=== PATIENT | male | born 1975 | race Caucasian/White ===

== ENCOUNTER 2017-11-10 09:31 | Emergency (ER) | payer OTHER, SELFPAY ==
[2017-11-10 09:45] VITALS: BP 118/69; PULSE 82; RESP 20; TEMP 36.4; O2SAT 98; BMI 31.7
--- NOTE | 2017-11-10 09:45 | HMH.EDUTC ---
[facility] [place] Clinical Impression: URI (upper respiratory infection) Qualifiers: URI type: unspecified URI Qualified Code(s): J06.9 - Acute upper respiratory infection, unspecified Disposition: Home, Self-Care Condition on Discharge: Good Instructions: Cough, DI for Nasal Congestion Additional Instructions: * Monitor Temp. Tylenol and/or Ibuprofen as needed. ER if fever is no less than 101 despite alternating Tylenol and Ibuprofen * Encourage fluids, water, Gatorade, powerade, pedialyte if /toddler/or child * Warm salt water gargles for throat irritation *Warm fluids *Sore throat lozenges *Sleep elevated *humidifier or vaporizer Lots of rest Increase fluids, water, Gatorade, powerade *Flonase 2 sprays each nostril daily but may take 2-3 days to notice improvement with it *Bromfed may cause drowsiness. Know how it effect you or your child. Before driving, caring for small children or sending your child to school *Your throat swab was sent to lab for culture. Those results area typically sent to your primary care physician. Be sure to follow up in 2-3 days if no improvement so they can review those results and treat if necessary If you dont have primary care I recommend you get one, but in the mean time you will have to return to a walk in clinic Follow up IMMEDIATELY for new or worsening of symptoms OR no noticeable improvement over the next 48-72 hours. 911 immediately for any life threatening symptoms such as chest pain or difficulty breathing Prescriptions: Azithromycin [Z-Cristobal 250mg Tab] 250 mg PO UD DOSE PK #6 tab Brompheniramine/Pseudoephed/Dm [Bromfed DM Cough Syrup 5mL] 10 ml PO Q4H PRN #200 syrup PRN Reason: Cough Fluticasone Propionate [Flonase 50mcg nasal spray 16gm] 2 spr NS DAILY #1 bottle predniSONE [Prednisone 20mg Tab] 20 mg PO BID #10 tab Forms: Work/School Release Time of Disposition: 09:58 Medical Decision Making - Medical Records Medical records reviewed: Yes: I reviewed the patient's medical records. - Candido Inquiry Pt receiving controlled substance: No Candido was queried for this patient: No [facility] [place] - General Stated complaint: Flu like symptoms - History of Present Illness Provider Complaint: Patient states that he has been having flu like symptoms for the last couple of days State that he started feeling bad on Tuesday and felt like he may have been getting a UTI or bronchitis State that last night he felt like he may have started running a fever last night State that he was having chills and feeling cold then broke out into a sweat. States that today he is achy all over and over all just does not feel well and having issues with his sinuses again - Related Data Previous Rx's Medication Instructions Recorded Azithromycin [Z-Cristobal 250mg Tab] 250 mg PO UD DOSE PK #6 tab 11/10/17 Brompheniramine/Pseudoephed/Dm 10 ml PO Q4H PRN #200 syrup 11/10/17 [Bromfed DM Cough Syrup 5mL] Fluticasone Propionate [Flonase 2 spr NS DAILY #1 bottle 11/10/17 50mcg nasal spray 16gm] predniSONE [Prednisone 20mg 20 mg PO BID #10 tab 11/10/17 Tab] Allergies Allergy/AdvReac Type Severity Reaction Status Date / Time No Known Allergies Allergy Verified 11/10/17 09:47 [facility] History I have reviewed the patient's past medical history: Yes Other Surgeries: Yes: No Previous Surgery - *Social History Tobacco Type: cigarettes Substance Use Type: denies use ROS Obtained: Yes All systems reviewed & no additional complaints - Constitutional Constitutional: Reports fever(s) - ENT Ears, Nose, Mouth, and Throat: Reports sinus pressure, Reports sore throat - Cardiovascular Cardiovascular: Denies chest pain at rest - Respiratory Respiratory: Yes cough, Yes non-productive cough, No coughing up blood Physical Exam - General General appearance: alert, in no apparent distress - Expanded ENT Exam Nose exam: Present: sinus tenderness Comment: Throat red, irritated drainage noted
--- NOTE | 2017-11-10 09:51 | ED_ITS ---
[facility] [place] Disposition Clinical Impression: URI (upper respiratory infection) Qualifiers: URI type: unspecified URI Qualified Code(s): J06.9 - Acute upper respiratory infection, unspecified Disposition: Home, Self-Care Condition on Discharge: Good Instructions: Cough, DI for Nasal Congestion Additional Instructions: * Monitor Temp. Tylenol and/or Ibuprofen as needed. ER if fever is no less than 101 despite alternating Tylenol and Ibuprofen * Encourage fluids, water, Gatorade, powerade, pedialyte if /toddler/or child * Warm salt water gargles for throat irritation *Warm fluids *Sore throat lozenges *Sleep elevated *humidifier or vaporizer Lots of rest Increase fluids, water, Gatorade, powerade *Flonase 2 sprays each nostril daily but may take 2-3 days to notice improvement with it *Bromfed may cause drowsiness. Know how it effect you or your child. Before driving, caring for small children or sending your child to school *Your throat swab was sent to lab for culture. Those results area typically sent to your primary care physician. Be sure to follow up in 2-3 days if no improvement so they can review those results and treat if necessary If you don? t have primary care I recommend you get one, but in the mean time you will have to return to a walk in clinic Follow up IMMEDIATELY for new or worsening of symptoms OR no noticeable improvement over the next 48-72 hours. 911 immediately for any life threatening symptoms such as chest pain or difficulty breathing Prescriptions: Azithromycin [Z-Cristobal 250mg Tab] 250 mg PO UD DOSE PK #6 tab Brompheniramine/Pseudoephed/Dm [Bromfed DM Cough Syrup 5mL] 10 ml PO Q4H PRN # 200 syrup PRN Reason: Cough Fluticasone Propionate [Flonase 50mcg nasal spray 16gm] 2 spr NS DAILY #1 bottle predniSONE [Prednisone 20mg Tab] 20 mg PO BID #10 tab Forms: Work/School Release Time of Disposition: 09:58 Medical Decision Making - Medical Records Medical records reviewed: Yes: I reviewed the patient's medical records. - Candido Inquiry Pt receiving controlled substance: No Candido was queried for this patient: No [facility] [place] HPI - General Stated complaint: Flu like symptoms - History of Present Illness Provider Complaint: Patient states that he has been having flu like symptoms for the last couple of days State that he started feeling bad on Tuesday and felt like he may have been getting a UTI or bronchitis State that last night he felt like he may have started running a fever last night State that he was having chills and feeling cold then broke out into a sweat. States that today he is achy all over and over all just does not feel well and having issues with his sinuses again - Related Data Previous Rx's Medication Instructions Recorded Azithromycin [Z-Cristobal 250mg Tab] 250 mg PO UD DOSE PK #6 tab 11/10/17 Brompheniramine/Pseudoephed/Dm 10 ml PO Q4H PRN #200 syrup 11/10/17 [Bromfed DM Cough Syrup 5mL] Fluticasone Propionate [Flonase 2 spr NS DAILY #1 bottle 11/10/17 50mcg nasal spray 16gm] predniSONE [Prednisone 20mg 20 mg PO BID #10 tab 11/10/17 Tab] Allergies Allergy/AdvReac Type Severity Reaction Status Date / Time No Known Allergies Allergy Verified 11/10/17 09:47 [facility] History I have reviewed the patient's past medical history: Yes Other Surgeries: Yes: No Previous Surgery - *Social History Tobacco Type: cigarettes Substance Use Type: denies use ROS Obtained: Yes All systems reviewed & no additional complaints -
[2017-11-10 09:55] LABS: UTC Influenza A Antigen Negative (Negative); UTC Influenza B Antigen Negative (Negative)
== END 2017-11-10 10:05 | disposition home or self-care (01) ==
PROVIDERS: Emergency Provider Nurse Practitioner
DX: J06.9 Acute upper respiratory infection, unspecified (principal)
CPT/HCPCS: 87804; 99202

== ENCOUNTER 2021-06-24 10:19 | Emergency (ER) | payer OTHER, SELFPAY ==
[2021-06-24 11:29] VITALS: BP 128/77; PULSE 65; RESP 14; TEMP 36.4; O2SAT 98; BMI 31.0
[2021-06-24 11:36] LABS: Apearance,Urine Clear (Clear); Blood, Urine Trace (Negative); Color,Urine Yellow (Yellow); Glucose,Urine (UA) Negative (Negative); Ketones,Urine Negative (Negative); PH,Urine 5.5 (5.0-8.5); Protein,Urine Negative (Negative); Specific Gravity, Urine 1.025 (1.005-1.030)
[2021-06-24 11:37] LABS: Bilirubin,Urine Negative (Negative); UTC Leukocyte Esterase,Urine Negative (Negative); UTC Nitrate,Urine Negative (Negative); Urobilinogen,Urine 0.2 EU/dl (0.2)
--- NOTE | 2021-06-24 11:50 | HMH.EDUTC ---
[facility] [place] Clinical Impression: Flank pain Low back pain Qualifiers: Chronicity: unspecified Back pain laterality: right Sciatica presence: without sciatica Qualified Code(s): M54.5 - Low back pain Disposition: Home, Self-Care Condition on Discharge: Good Instructions: DI for Low Back Pain, DI for Chronic Pain -- Adult, Ketorolac, DI for Flank Pain Additional Instructions: Take medication as prescribed Make sure that you are drinking plenty of fluids FOllow up with your Family Doctor if no improvement or any worsening of symptoms Follow up with Dr John in Urology, call office to make appointment Straight to ER if any life threatening symptoms, unable to urinate, fever, chills, etc Return if needed' Do not start oral pain medication for the next 10 hours start at 10pm tonight if needed Prescriptions: Ketorolac Tromethamine [Toradol 10mg tablet] 10 mg PO Q6HP PRN #12 tab MDD 40mg/day PRN Reason: Moderate Pain Transmission Status: Received by [id number] Referrals: ProviderShani MD [Primary Care Provider] - Howard John MD [Staff Physician] - (Call office for appointment) Forms: Work/School Release Time of Disposition: 12:08 Medical Decision Making - Candido Inquiry Pt receiving controlled substance: No Candido was queried for this patient: No Vital Signs: 06/24/21 11:29 06/24/21 12:14 Temperature 97.5 F L 97.9 F Temperature Source Oral Pulse Rate 69 Pulse Rate [Left] 65 Respiratory Rate 14 16 Blood Pressure 121/83 Blood Pressure [Right Arm] 128/77 Blood Pressure Mean [Right Arm] 94 02 Sat by Pulse Oximetry 98 - Lab Data Lab results reviewed: Yes: I reviewed the patient's lab results. Lab Results 06/24/21 11:35: Urine Color Yellow, Urine Appearance Clear, Urine pH 5.5, Ur Specific [place] 1.025, Urine Protein Negative, Urine Glucose (UA) Negative, Urine Ketones Negative, Urine Blood Trace, Urine Nitrate Negative, Urine Bilirubin Negative, Urine Urobilinogen 0.2, Ur Leukocyte Esterase Negative Orders (Tests/Meds): ED MEDICATIONS Discontinued Medications Generic Name Dose Route Start Last Admin Trade Name Freq PRN Reason Stop Dose Admin Ketorolac Tromethamine 60 mg 06/24/21 11:51 06/24/21 11:55 Ketorolac 60mg/2ml Vial IM 06/24/21 11:52 60 mg ONCE ONE Administration ORDERS Category Date Time Status Urine Culture Stat Micro 06/24/21 11:38 Received Medical Decision Narrative: UA results evaluated and trace blood noted Discussed with patient that in the [facility] cannot do CT with stone protocol and recommended that patient be transferred to the ED for further work up and evaluation and patient declined transfer state that he has been able to pass stones in the past and pain is not as bad right now that if pain worsens or he is not able to pass it he will return to the ED patient educated on risks and still declined transfer Patient reports that he has taken Toradol in the past without complications or reactions [facility] [place] HPI - General Stated complaint: lower back pain, possible kidney stone Time Seen by Provider: 06/24/21 11:51 Mode of Arrival: Ambulatory Source of Information: Patient Limitations: No Limitations Description of Symptoms (Recalled from Triage Doc. by RN): pt c/o lower back pain x3 days. today the pain has radiated to his R flank. pain is intermittant at an 9/10. pt has a hx of kidney stones. HEENT Symptoms (Recalled from RN notes): No Resp Symptoms (Recalled from RN notes): No Skin Symptoms (Recalled from RN notes): No MS Symptoms (Recalled from RN notes): Yes (lower back pain) Functional Status (Recalled from RN notes): na - History of Present Illness Provider Complaint: Patient state that he has a history of kidney stones and low back pain State that he started having achy like pain on and off in the right lower back that has since moved over to lower back and flank area States that kind of feels like it did when he had a ki
[2021-06-24 12:14] VITALS: BP 121/83; PULSE 69; RESP 16; TEMP 36.6
== END 2021-06-24 12:27 | disposition home or self-care (01) ==
PROVIDERS: Emergency Provider Nurse Practitioner
DX: M54.5 Low back pain (principal); R10.11 Right upper quadrant pain; Z87.442 Personal history of urinary calculi; F17.210 Nicotine dependence, cigarettes, uncomplicated
CPT/HCPCS: 81003; 87086; 96372; 99202; G0463

== ENCOUNTER 2021-06-26 02:37 | Emergency (ER) | payer OTHER, SELFPAY ==
[2021-06-26 02:39] VITALS: BP 150/81; PULSE 77; RESP 16; TEMP 36.6; O2SAT 98; BMI 31.0
[2021-06-26 02:43] VITALS: BMI 29.5
--- NOTE | 2021-06-26 02:43 | CT_ITS ---
PROCEDURE INFORMATION: Exam: CT Abdomen And Pelvis Without Contrast Exam date and time: 06/26/2021 2:43 AM Age: 46 years old Clinical indication: Abdominal pain; Right; Patient HX: RT flank pain, HX of kidney stones; Additional info: Rule out kidney stone TECHNIQUE: Imaging protocol: Computed tomography of the abdomen and pelvis without contrast. Radiation optimization: All CT scans at this facility use at least one of these dose optimization techniques: automated exposure control; mA and/or kV adjustment per patient size (includes targeted exams where dose is matched to clinical indication); or iterative reconstruction. COMPARISON: CR XR LUMBAR SPINE MIN 4V 10/22/2019 12:25 PM FINDINGS: Lungs: There are benign calcified granulomas noted within the right middle lobe as well as within the right perihilar region. No evidence of basilar infiltrates. No evidence of pleural effusion or pneumothorax. Liver: The liver is normal in size and attenuation. No intrahapatic biliary dilitation. Gallbladder and bile ducts: Normal. No calcified stones. No ductal dilation. Gallbladder wall thickness is normal. Pancreas: Normal. No ductal dilation. Spleen: There are benign splenic calcified granulomas. The spleen is normal in size. Adrenal glands: Normal. No mass. Adrenal glands: Normal. No mass. Kidneys and ureters: There is a 6 mm nonobstructing nephroliths identified within the inferior pole of the left kidney. There is no evidence of hydronephrosis or hydroureter bilaterally. Stomach and bowel: Unremarkable. No obstruction. No mucosal thickening. Small bowel mesentery is normal. Appendix: Unremarkable. Intraperitoneal space: Unremarkable. No free air. No significant fluid collection. Vasculature: Unremarkable. No abdominal aortic aneurysm. Lymph nodes: Unremarkable. No enlarged lymph nodes. Urinary bladder: Unremarkable as visualized. Reproductive: Unremarkable as visualized. Bones/joints: Unremarkable. No acute fracture. Soft tissues: Unremarkable. IMPRESSION: 1. There is a 6 mm nonobstructing nephroliths arising from the inferior pole of the left kidney. No evidence of hydronephrosis or hydroureter. 2. Evidence of old healed granulomatous disease present within the right middle lobe, the right perihilar region, and within the spleen.
[2021-06-26 03:07] LABS: Alanine Aminotransferase 38 U/L (12-78); Albumin Level 4.4 g/dl (3.5-5.0); Albumin/Globulin Ratio 1.5 (1.1-1.8); Alkaline Phosphatase 65 U/L (38-126); Amylase 81 U/L (30-110); Anion Gap 12.5 mEq/L (5-15); Aspartate Amino Transferase 32 U/L (17-59); Basophils # 0.1 K/mm3 (0-0.2); Basophils % 0.9 % (0.1-2.0); Bilirubin,Total 0.3 mg/dl (0.2-1.3); Blood Urea Nitrogen 11 mg/dl (9-20); Calcium 9.1 mg/dl (8.4-10.2); Carbon Dioxide 26 mmol/L (22.0-30.0); Chloride 107 mmol/L (98-107); Creatinine Clearance Estimated 121 mL/min (50-200); Eosinophils # 0.2 K/mm3 (0.0-0.4); Eosinophils % 2.2 % (0.1-12.0); Estimated Glomerular Filt Rate 81 ml/min (>60); GFR (African American) 98 ML/MIN (>60); Globulin 2.9 g/dL (1.3-3.2); Glucose 99 mg/dl (74-100); Hematocrit 49.1 % (42.0-52.0); Hemoglobin 16.5 g/dL (14.1-18.0); Lipase 92 U/L (23-300); Lymphocytes % 40.6 % (10-50); Mean Corpuscular HGB Conc 33.5 g/dL (31.8-35.4); Mean Corpuscular Hemoglobin 31.5 pg (27.0-31.2); Mean Corpuscular Volume 94.1 fl (80-94); Mean Platelet Volume 7.5 fl (7.4-10.4); Monocytes # 0.4 K/mm3 (0.1-1.0); Monocytes % 4.5 % (1.7-9.3); Neutrophils # 5.1 K/mm3 (1.8-7.8); Neutrophils % 51.9 % (37.0-80.0); Platelet Count 322 K/mm3 (142-424); Potassium 4.5 mmoL/L (3.5-5.1); Red Blood Count 5.22 M/mm3 (4.60-6.20); Red Cell Distribution Width 13.8 % (11.5-17.5); Sodium 141 mmol/L (136-145); Total Protein,Serum 7.3 g/dl (6.3-8.2); White Blood Count 9.8 K/mm3 (4.8-10.8)
[2021-06-26 03:13] LABS: C-Reactive Protein 2.8 mg/L (0-4)
[2021-06-26 03:27] LABS: Procalcitonin 0.043 ng/mL (0.0-2.0)
[2021-06-26 04:00] VITALS: BP 117/76; PULSE 61; RESP 14; O2SAT 97
[2021-06-26 04:03] LABS: Erythrocyte Sedimentation Rate 18 mm/hr (0-15)
[2021-06-26 04:30] VITALS: BP 115/66; PULSE 56; O2SAT 97
--- NOTE | 2021-06-26 04:33 | HMH.EDGENADL ---
ED Disposition Clinical Impression: Flank pain Disposition: Home, Self-Care Condition on Discharge: Good Instructions: DI for Flank Pain Additional Instructions: fluids and see pcp for follow up Referrals: Provider,MD Shani [Primary Care Provider] - Howard John MD [Staff Physician] - - Critical Care Critical Care Time: No Attestation: On 06/26/21, the high probability of a clinically significant, sudden or life threatening deterioration of the following system(s) required my full and direct attention, intervention and personal management. The time I documented below is in addition to time spent performing reported procedures but includes the following listed in this critical care notation. Medical Decision Making - Medical Records Medical records reviewed: Yes: I reviewed the patient's medical records. - Candido Inquiry Pt receiving controlled substance: No Vital Signs: 06/26/21 02:39 06/26/21 04:00 06/26/21 04:30 Temperature 97.9 F Temperature Source Oral Pulse Rate 61 56 L Pulse Rate [Right Radial] 77 Respiratory Rate 16 14 Blood Pressure 117/76 115/66 Blood Pressure [Right Arm] 150/81 H Blood Pressure Mean [Right Arm] 104 Blood Pressure Source [Right Arm] Automatic Cuff Blood Pressure Position [Right Arm] Sitting 02 Sat by Pulse Oximetry 98 97 97 Oxygen Delivery Method Room Air Room Air Room Air 06/26/21 05:00 Temperature Temperature Source Pulse Rate 55 L Pulse Rate [Right Radial] Respiratory Rate Blood Pressure 117/72 Blood Pressure [Right Arm] Blood Pressure Mean [Right Arm] Blood Pressure Source [Right Arm] Blood Pressure Position [Right Arm] 02 Sat by Pulse Oximetry 98 Oxygen Delivery Method Room Air - Lab Data Lab results reviewed: Yes: I reviewed the patient's lab results. Lab Results 06/26/21 02:43: WBC 9.8, RBC 5.22, Hgb 16.5, Hct 49.1, MCV 94.1 H, MCH 31.5 H, MCHC 33.5, RDW 13.8, Plt Count 322, MPV 7.5, Neut % (Auto) 51.9, Lymph % (Auto) 40.6, [place] % (Auto) 4.5, Eos % (Auto) 2.2, Baso % (Auto) 0.9, Neut # (Auto) 5.1, Lymph # (Auto) 4.0, [place] # (Auto) 0.4, Eos # (Auto) 0.2, Baso # (Auto) 0.1, ESR 18 H 06/26/21 02:43: Sodium 141, Potassium 4.5, Chloride 107, Carbon Dioxide 26, Anion Gap 12.5, BUN 11, Creatinine 1.00, Estimated Creat Clear 121, Estimated GFR 81, Est GFR ( Amer) 98, Glucose 99, Calcium 9.1, Total Bilirubin 0.3, AST 32, ALT 38, Alkaline Phosphatase 65, C-Reactive Protein 2.8, Total Protein 7.3, Albumin 4.4, Globulin 2.9, Albumin/Globulin Ratio 1.5, Amylase 81, Lipase 92 06/26/21 02:52: Procalcitonin 0.043 06/26/21 04:38: Urine Color Yellow, Urine Appearance Clear, Urine pH 5.5, Ur Specific [place] >= 1.030, Urine Protein Negative, Urine Glucose (UA) Negative, Urine Ketones Negative, Urine Blood Trace-i, Urine Nitrate Negative, Urine Bilirubin Negative, Urine Urobilinogen 0.2, Ur Leukocyte Esterase Negative Result diagrams: 06/26/21 02:43 06/26/21 02:43 Orders (Tests/Meds): ED MEDICATIONS Generic Name Dose Route Start Last Admin Trade Name Freq PRN Reason Stop Dose Admin Sodium Chloride 1,000 mls @ 999 mls/hr 06/26/21 03:00 06/26/21 02:55 Sod Chlor 0.9% 1000ml Bag IV 06/26/21 04:00 999 mls/hr .Q1H1M ASCENCION Administration Tamsulosin HCl 0.4 mg 06/26/21 21:00 06/26/21 03:25 Tamsulosin 0.4mg Capsule PO 07/26/21 20:59 0.4 mg HS ASCENCION Administration Discontinued Medications Generic Name Dose Route Start Last Admin Trade Name Freq PRN Reason Stop Dose Admin Acetaminophen/Codeine Phosphate 1 bri 06/26/21 04:38 06/26/21 04:46 Acetaminophen 300mg W/Codeine 30mg Take Home Pack (6) PO 06/26/21 04:39 1 bri ONCE ONE Administration Hydromorphone HCl 1 mg 06/26/21 04:45 06/26/21 04:54 Hydromorphone 2mg/Ml Syringe IV 06/26/21 04:46 1 mg ONCE ONE Administration Ketorolac Tromethamine 30 mg 06/26/21 02:51 06/26/21 02:54 Ketorolac 30mg/Ml Vial IV 06/26/21 02:52 30 mg ONCE ONE
[2021-06-26 04:42] LABS: Microscopic, Urine URINE MICROSCOPIC (MICROSCOPIC)
[2021-06-26 04:43] LABS: Appearance,Urine CLEAR (Clear); Bilirubin,Urine Negative (Negative); Blood, Urine TRACE-I (Negative); Color,Urine YELLOW (Yellow); Glucose,Urine (UA) Negative (Negative); Ketones,Urine Negative (Negative); Leukocyte Esterase,Urine Negative (Negative); Nitrate,Urine Negative (Negative); PH,Urine 5.5 (5.0-8.5); Protein,Urine Negative (Negative); Specific Gravity, Urine >= 1.030 (1.005-1.030); Urobilinogen,Urine 0.2 EU/dl (0.2)
[2021-06-26 05:00] VITALS: BP 117/72; PULSE 55; O2SAT 98
[2021-06-26 05:16] LABS: Bacteria,Urine 1+ /lpf; Mucus,Urine 1+ /lpf
[2021-06-26 05:19] VITALS: BP 117/72; PULSE 75; RESP 19; TEMP 36.6; O2SAT 96
== END 2021-06-26 05:25 | disposition home or self-care (01) ==
PROVIDERS: Emergency Provider Emergency Medicine
DX: R10.31 Right lower quadrant pain (principal); F17.210 Nicotine dependence, cigarettes, uncomplicated
CPT/HCPCS: 74176; 80053; 81001; 82150; 83690; 84145; 85025; 85651; 86140; 96365; 96375; 99283; J2405

== ENCOUNTER 2022-02-09 13:19 | Emergency (ER) | payer OTHER, SELFPAY ==
[2022-02-09 15:25] VITALS: BP 139/81; PULSE 74; RESP 19; TEMP 36.7; O2SAT 96; BMI 30.1
--- NOTE | 2022-02-09 15:39 | HMH.EDUTC ---
[facility] [place] Clinical Impression: Asthma exacerbation Qualifiers: Asthma severity: unspecified severity Asthma persistence: unspecified Qualified Code(s): J45.901 - Unspecified asthma with (acute) exacerbation Acute bronchitis Qualifiers: Bronchitis organism: unspecified organism Qualified Code(s): J20.9 - Acute bronchitis, unspecified Disposition: Home, Self-Care Condition on Discharge: Good Instructions: Asthma -- Adult, DI for Acute Bronchitis Additional Instructions: Drink plenty of fluids. Take tylenol or ibuprofen for pain or fever. Take the medications as directed. Follow up with your regular doctor. GO TO THE ER FOR ANY WORSENING SYMPTOMS Don't start the oral steroids until tomorrow, since you had the shot here today. The cough medication (promethazine dm) will make you drowsy, so don't drive or operate heavy machinery after taking it. Prescriptions: Albuterol Sulfate [Albuterol Sulfate Hfa] 2 puffs IH Q6HP PRN 30 Days #1 each PRN Reason: Shortness Of Breath [facility] Promethazine/Dextromethorphan [Promethazine-Dm Syrup] 5 ml PO Q6HP PRN #240 ml PRN Reason: Cough Transmission Status: Pending to [facility] methylPREDNISolone [Medrol] 4 mg PO DIRECTED 6 Days #21 packet Transmission Status: Pending to [facility] Azithromycin [Z-Cristobal 250mg Tab*] 250 mg PO UD DOSE PK #6 tab Transmission Status: Pending to [facility] Referrals: Provider,Referral, MD [Primary Care Provider] - Forms: Work/School Release Time of Disposition: 16:14 Medical Decision Making - Medical Records Medical records reviewed: No: I reviewed the patient's medical records. - Candido Inquiry Pt receiving controlled substance: No Vital Signs: 02/09/22 15:25 Temperature 98.1 F Temperature Source Oral Pulse Rate [Right Brachial] 74 Respiratory Rate 19 Blood Pressure [Right Arm] 139/81 Blood Pressure Mean [Right Arm] 100 Blood Pressure Source [Right Arm] Automatic Cuff Blood Pressure Position [Right Arm] Sitting 02 Sat by Pulse Oximetry 96 Oxygen Delivery Method Room Air [facility] [place] HPI - General Stated complaint: hoarse, chest congestion Time Seen by Provider: 02/09/22 15:35 - History of Present Illness Provider Complaint: he states that he has been having a chest congestion, asthma exacerbation symptoms, and sinus congestion for the past 1 week. He has a history of asthma. He denies any fever or chills. - Related Data Previous Rx's Medication Instructions Recorded Albuterol Sulfate [Albuterol 2 puffs IH Q6HP PRN 30 Days #1 each 02/09/22 Sulfate Hfa] Azithromycin [Z-Cristobal 250mg Tab*] 250 mg PO UD DOSE PK #6 tab 02/09/22 Promethazine/Dextromethorphan 5 ml PO Q6HP PRN #240 ml 02/09/22 [Promethazine-Dm Syrup] methylPREDNISolone [Medrol] 4 mg PO DIRECTED 6 Days #21 02/09/22 packet Allergies Allergy/AdvReac Type Severity Reaction Status Date / Time No Known Allergies Allergy Verified 07/02/21 14:37 [facility] History - Hepatitis A Screen Attestation statement:: This patient has been screened for Hepatitis A risk factors. I have reviewed the patient's past medical history: Yes Medical History: Reports:: Asthma Other Surgeries: Yes: No Previous Surgery Amputation: No Fractures: Yes Comment: left arm surgery with rods and screws - Social History Smoking Status: Current every day smoker Tobacco Type: cigarettes # Packs/Day (cigarettes): 1 Alcohol Intake: never Substance Use Type: denies use Occupational Status: other Family Hx:: Non-contributory ROS Obtained: Yes All systems reviewed & no additional complaints - Constitutional Constitutional: Denies chills, Denies fever(s), Reports poor appetite, Reports malaise - Eyes Eyes: Denies eye discharge - ENT Ears, Nose, Mouth, and Throat: Reports as per HPI - Cardiovascular Cardiovascular: Denies chest pain - Respiratory Respiratory: Repor
[2022-02-09 16:14] VITALS: BP 139/81; PULSE 74; RESP 19; TEMP 36.7; O2SAT 96
== END 2022-02-09 16:19 | disposition home or self-care (01) ==
PROVIDERS: Emergency Provider Nurse Practitioner Family
DX: J45.901 Unspecified asthma with (acute) exacerbation (principal); J20.9 Acute bronchitis, unspecified; F17.210 Nicotine dependence, cigarettes, uncomplicated
CPT/HCPCS: 96372; 99212; G0463; J0696

== ENCOUNTER 2023-01-15 23:38 | Emergency (ER) | payer OTHER, SELFPAY ==
[2023-01-15 23:40] VITALS: BP 198/104; PULSE 95; RESP 18; TEMP 37; O2SAT 94; BMI 33.4
--- NOTE | 2023-01-15 23:47 | CT_ITS ---
PROCEDURE INFORMATION: Exam: CT Abdomen And Pelvis Without Contrast Exam date and time: 01/15/2023 11:56 PM Age: 47 years old Clinical indication: Abdominal pain; Flank; Left; Additional info: Llq pain TECHNIQUE: Imaging protocol: Computed tomography of the abdomen and pelvis without contrast. Total images: 336 Radiation optimization: All CT scans at this facility use at least one of these dose optimization techniques: automated exposure control; mA and/or kV adjustment per patient size (includes targeted exams where dose is matched to clinical indication); or iterative reconstruction. REPORTING DATA: Count of CT and Cardiac NM exams in prior 12 months: This patient has received 0 known CTs and 0 known cardiac nuclear medicine studies in the 12 months prior to the current study. COMPARISON: CT ABDOMEN PELVIS WO CON 06/26/2021 2:55 AM FINDINGS: Lungs: Calcified right middle lobe granuloma. Minor bibasilar atelectasis. No airspace consolidation. Heart: Normal heart size. Liver: Slight decreased liver attenuation which does not meet strict criteria for steatosis based on attenuation value. Normal liver size and contour. No mass. Gallbladder and bile ducts: Contracted gallbladder. No bile duct dilatation. Pancreas: Normal. No ductal dilation. Spleen: Nonenlarged spleen with calcified granuloma. 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 Kidneys and ureters: Moderate left hydronephrosis. Punctate 1-2 mm upper pole left renal calculus. Mild asymmetric left perinephric edema. Moderate left hydroureter. 6 x 8 mm obstructing calculus in the distal ureter at the level of the pelvic inlet. Unremarkable right kidney and right ureter. Stomach and bowel: Unremarkable stomach and duodenum. No ileus or bowel obstruction. Small bowel is within normal limits. Stool in the distal ileum compatible with chronic stasis and delayed fecal transit. Mild colonic stool burden. No acute colonic inflammatory change. Collapsed rectum. Appendix: Normal appendix. Intraperitoneal space: Unremarkable. No free air. No significant fluid collection. Vasculature: Aorta is normal in caliber. Lymph nodes: Unremarkable. No enlarged lymph nodes. Urinary bladder: Collapsed bladder. No bladder stones. Reproductive: Nonenlarged prostate. Bones/joints: No acute osseous abnormality. Moderate degenerative changes thoracolumbar spine. Remote deformity superior L3 vertebral endplate with adjacent limbus segment. Soft tissues: Mild bilateral gynecomastia. Tiny fat containing umbilical hernia. IMPRESSION: 1. Moderate left hydronephrosis and hydroureter secondary to a 6 x 8 mm obstructing stone in the distal ureter. 2. Additional punctate left nephrolithiasis. 3. Mild left perinephric edema from obstructive uropathy versus superimposed infection/pyelonephritis. 4. Additional chronic and incidental findings. COMMENTS: Consistent with the [employer]'s Incidental Findings Committee white paper (J Am Rosio Radiol 2017): For any incidental adrenal lesion greater than or equal to 1 cm but less than or equal to 4 cm classified in this report as benign, likely benign, or containing fat (including classification as an adenoma or myelolipoma), no follow-up imaging is recommended per consensus recommendations based on imaging criteria. Further lab evaluation could be pursued if warranted based on clinical findings.
--- NOTE | 2023-01-15 23:58 | PC.NURSE ---
Pt back from RAD
[2023-01-16 00:01] LABS: Microscopic, Urine URINE MICROSCOPIC (MICROSCOPIC)
[2023-01-16 00:06] LABS: Basophils # 0.2 K/mm3 (0-0.2); Basophils % 1.7 % (0.1-2.0); Eosinophils # 0.2 K/mm3 (0.0-0.4); Eosinophils % 2.2 % (0.1-12.0); Hematocrit 42.3 % (42.0-52.0); Hemoglobin 14.5 g/dL (14.1-18.0); Lymphocytes # 2.7 K/mm3 (0.7-4.5); Lymphocytes % 30.9 % (10-50); Mean Corpuscular HGB Conc 34.4 g/dL (31.8-35.4); Mean Corpuscular Hemoglobin 30.1 pg (27.0-31.2); Mean Corpuscular Volume 87.7 fl (80-94); Mean Platelet Volume 7.7 fl (7.4-10.4); Monocytes # 0.6 K/mm3 (0.1-1.0); Monocytes % 6.9 % (1.7-9.3); Neutrophils # 5.1 K/mm3 (1.8-7.8); Neutrophils % 58.4 % (37.0-80.0); Platelet Count 280 K/mm3 (142-424); Red Blood Count 4.83 M/mm3 (4.60-6.20); Red Cell Distribution Width 13.4 % (11.5-17.5); White Blood Count 8.7 K/mm3 (4.8-10.8)
[2023-01-16 00:07] LABS: Appearance,Urine CLEAR (Clear); Bilirubin,Urine Negative (Negative); Blood, Urine 1+ (Negative); Color,Urine YELLOW (Yellow); Glucose,Urine (UA) Negative (Negative); Ketones,Urine Negative (Negative); Leukocyte Esterase,Urine Negative (Negative); Nitrate,Urine Negative (Negative); Protein,Urine Negative (Negative); Urobilinogen,Urine 0.2 EU/dl (0.2)
[2023-01-16 00:08] LABS: Chloride 102 mmol/L (98-107); Sodium 137 mmol/L (136-145)
[2023-01-16 00:09] LABS: Potassium 3.9 mmoL/L (3.5-5.1)
[2023-01-16 00:11] LABS: Alanine Aminotransferase 43 U/L (12-78); Alkaline Phosphatase 74 U/L (38-126); Amylase 74 U/L (30-110); Anion Gap 10.9 mEq/L (5-15); Aspartate Amino Transferase 30 U/L (17-59); Bilirubin,Total 0.4 mg/dl (0.2-1.3); Blood Urea Nitrogen 18 mg/dl (9-20); Calcium 8.8 mg/dl (8.4-10.2); Carbon Dioxide 28 mmol/L (22.0-30.0); Creatinine Clearance Estimated 110 mL/min (50-200); Estimated Glomerular Filt Rate 65 ml/min (>60); GFR (African American) 79 ML/MIN (>60); Glucose 119 mg/dl (74-100); Lipase 84 U/L (23-300)
[2023-01-16 00:12] LABS: Albumin Level 4.5 g/dl (3.5-5.0); Albumin/Globulin Ratio 1.4 (1.1-1.8); Globulin 3.2 g/dL (1.3-3.2); Total Protein,Serum 7.7 g/dl (6.3-8.2)
[2023-01-16 00:26] LABS: Bacteria,Urine Trace /lpf
--- NOTE | 2023-01-16 00:32 | HMH.EDABDPAI ---
Discharge Plan Disposition Patient Disposition: Home, Self-Care Prescriptions Prescriptions: New tamsulosin [Flomax] 0.4 mg capsule 0.4 mg PO DAILY Qty: 10 0RF ketorolac 10 mg tablet 10 mg PO Q6H 3 Days Qty: 12 0RF No Action promethazine-DM 120 ML syrup 5 ml PO Q6HP PRN (Reason: Cough) Qty: 240 0RF azithromycin 250 MG tablet 250 mg PO UD DOSE PK Qty: 6 0RF Rx Instructions: Take two (2) tablets today, then one (1) tablet days #2 thru #5 methylprednisolone 4 MG tablets,dose pack 4 mg PO DIRECTED 6 Days Qty: 21 0RF albuterol sulfate 8.5 GM HFA aerosol inhaler 2 puffs IH Q6HP PRN (Reason: Shortness Of Breath) 30 Days Qty: 1 5RF Referrals Follow up/Referrals: Provider,Referral, [Primary Care Provider] - See instructions Howard John MD [Referring] - See instructions Clinical Impressions Clinical Impression: Renal colic on left side Instructions Patient Instructions: DI for Kidney Stones Discharge ED Provider: Dillon (ED)Arsh Abdominal Pain HPI General Chief Complaint: Abdominal Pain Stated Complaint: Pain in left side Time Seen by Provider: 01/16/23 00:32 Mode of Arrival: Ambulatory Source of Information: Patient and Medical Record Limitations: No Limitations Description of Symptoms (Recalled from ER Triage Doc. by RN): pt c/o LLQ pain radiating to lt flank x 3 days History of Present Illness HPI narrative: over the last few days has lt flank and abd pain complaint: flank pain Onset (ago): day(s) Consistency: intermittent Location: L flank Severity: moderate Associated symptoms: nausea Related Data Previous Rx's Medication Instructions Recorded albuterol sulfate 90 mcg/actuation 2 puffs IH Q6HP PRN Shortness Of 02/09/22 aerosol inhaler Breath 30 days #1 ea azithromycin 250 mg tablet 250 mg PO UD DOSE PK #6 tabs 02/09/22 methylprednisolone 4 mg tablets in 4 mg PO DIRECTED 6 days #21 02/09/22 a dose pack packets promethazine-DM 6.25 mg-15 mg/5 mL 5 ml PO Q6HP PRN Cough #240 mL 02/09/22 oral syrup ketorolac 10 mg tablet 10 mg PO Q6H 3 days #12 tabs 01/16/23 tamsulosin 0.4 mg capsule (Flomax) 0.4 mg PO DAILY #10 caps 01/16/23 Allergies Allergy/AdvReac Type Severity Reaction Status Date / Time No Known Allergies Allergy Verified 07/02/21 14:37 [facility] Disclaimer: The information contained in this section may have been updated after the patient was seen, as this information can be updated by other users. Social History Smoking Status: Former smoker second hand exposure: Yes alcohol intake: never substance use type: denies use current occupational status: other Travel in the last 8 weeks: None ROS Obtained: Yes All systems reviewed & no additional complaints except as documented Physical Exam General General appearance: alert Head Head exam: normocephalic Eye Eye exam: Present PERRL and EOMI ENT ENT exam: Present mucous membranes moist Neck Neck exam: Present trachea midline Respiratory Respiratory exam: Present normal lung sounds bilaterally; Absent respiratory distress Cardiovascular Cardiovascular exam: Present regular rate Abdominal Exam Abdominal exam: Present soft and tenderness Abdominal tenderness: Present LLQ and mild Extremities Exam Extremities exam: Present full ROM Back Exam Back exam: Absent CVA tenderness (L) Neurological Exam Neurological exam: Present alert and oriented X3 Psychiatric Psychiatric exam: Present normal affect Skin Skin exam: Absent rash Medical Decision Making Medical Records Medical records reviewed: Yes I reviewed the patient's medical records. Candido Inquiry Pt receiving controlled substance: No Vital Signs: 01/15/23 23:40 Temperature 98.6 F Temperature Source Oral Pulse Rate [Left] 95 H Respiratory Rate 18 Blood Pressure [Right Arm] 198/104 H Blood Pressure Mean [Right Arm] 135 02 Sat by Pulse Oximetry 94 L Lab Data Lab results reviewed:
--- NOTE | 2023-01-16 00:45 | PC.NURSE ---
Rounded on pt. No needs or complaints voiced.
[2023-01-16 00:58] VITALS: BP 126/87; PULSE 74; RESP 17; TEMP 36.6; O2SAT 98
== END 2023-01-16 01:02 | disposition home or self-care (01) ==
PROVIDERS: Emergency Provider Emergency Medicine
DX: N23 Unspecified renal colic (principal)
CPT/HCPCS: 74176; 80053; 81001; 82150; 83690; 85025; 96361; 96374; 96375; 99284; 99285; J2405

== ENCOUNTER 2023-10-03 14:34 | Emergency (ER) | payer OTHER, SELFPAY ==
--- NOTE | 2023-10-03 14:43 | XR_ITS ---
FINAL REPORT CLINICAL HISTORY: FELL OFF OF LADDER 6 foot step ladder landing on small rock wall COMPARISON: None FINDINGS: 3 views of the lumbar spine were obtained. There is no evidence of fracture or dislocation. There is mild degenerative change. There is mild rightward curvature of the lumbar spine. No paraspinous soft tissue abnormalities identified. IMPRESSION: No acute bony abnormality. Reviewed, Interpreted and Dictated by Red Brito III, MD Transcribed by Vida Landon Authenticated and [facility]
--- NOTE | 2023-10-03 14:43 | XR_ITS ---
FINAL REPORT CLINICAL HISTORY: FELL OFF OF LADDER, 6 foot step ladder landing on small rock wall. COMPARISON: None FINDINGS: A single view of the chest with 3 views of the right ribs were obtained. There is no acute cardiopulmonary process. No pneumothorax is identified. Irregularity of the right 11th lateral rib is consistent with a rib fracture of uncertain age but favored to be chronic. No definite acute fracture seen. IMPRESSION: No definite acute fracture. Reviewed, Interpreted and Dictated by Red Brito III, MD Transcribed by Vida Landon Authenticated and [facility]
[2023-10-03 15:10] VITALS: BP 135/80; PULSE 86; RESP 18; TEMP 36.8; O2SAT 98; BMI 36.1
--- NOTE | 2023-10-03 15:23 | EXP.UTC ---
Discharge Plan Disposition Patient Disposition: Home, Self-Care Condition: Good Prescriptions Prescriptions: New etodolac 200 mg capsule 200 mg PO Q8H PRN (Reason: pain) Qty: 20 0RF cyclobenzaprine 10 mg tablet 10 mg PO TID PRN (Reason: muscle spasm) Qty: 9 0RF No Action albuterol sulfate 8.5 GM HFA aerosol inhaler 2 puffs IH Q6HP PRN (Reason: Shortness Of Breath) 30 Days Qty: 1 5RF Referrals Follow up/Referrals: Provider,Referral, MD [Primary Care Provider] - See instructions Activity Restrictions/Add. Instructions Additional Instructions/Restrictions: *Etodolac gordon 8 hours with meal as needed for pain/inflammation *Not additional anti-inflammatory like Ibuprofen, motrin, aleve, advil with the above amount of Etodolac. You can still take Tylenol every 4 hours as needed if you need something else for pain *Ice 20 minutes every 2 hours for the first 48 hours after the initial injury followed by moist heat every 20 minutes 3-4 times a day to affected area *Muscle relaxer every 8 hours as needed for muscle spasms but remember, it WILL cause drowsiness You cannot take it and drive, operate machinery or care for small children. *Keep this area active, no movement leads to more stiffness, However take it easy and avoid heavy lifting pushing or pulling *Follow up with you family doctor if no improvement for further treatment Straight to ER if any life threatening symptoms, blood in urine loss of control of bowel or bladder Clinical Impressions Clinical Impression: Contusion of ribs Qualifiers: Encounter type: initial encounter Laterality: right Qualified Code(s): S20.211A - Contusion of right front wall of thorax, initial encounter Instructions Patient Instructions: DI for Rib Contusion, Etodolac Discharge ED Provider: Yee Hathaway [facility] General Stated complaint: AO fell off ladder, inj. back [id number] Mode of Arrival: Ambulatory Source of Information: Patient Limitations: No Limitations Time Seen by Provider: 10/03/23 15:23 Description of Symptoms (Recalled from Triage Doc. by RN): Pt stated that yesterday 10/02/2023 he fell off a 6' ladder and landed on a block wall. His lower back, and right ribs are hurting. HEENT Symptoms (Recalled from RN notes): No Resp Symptoms (Recalled from RN notes): No Skin Symptoms (Recalled from RN notes): No MS Symptoms (Recalled from RN notes): Yes Functional Status (Recalled from RN notes): n/a History of Present Illness Provider Complaint: Patient states that yesterday he was on a 6ft ladder he had leaning against the wall when it slipped and he fell off the ladder landing on his right side ribs on small block wall States that he has been having pain in his right ribs ever since States that he has been urinating ok denies any blood and has had several bowel movements since the fall Denies SOA and denies LOC reports hx of fractured rib in same area a couple years ago Related Data Previous Rx's Medication Instructions Recorded albuterol sulfate 90 mcg/actuation 2 puffs IH Q6HP PRN Shortness Of 02/09/22 aerosol inhaler Breath 30 days #1 ea cyclobenzaprine 10 mg tablet 10 mg PO TID PRN muscle spasm #9 10/03/23 tabs etodolac 200 mg capsule 200 mg PO Q8H PRN pain #20 caps 10/03/23 Allergies Allergy/AdvReac Type Severity Reaction Status Date / Time No Known Allergies Allergy Verified 10/03/23 15:22 Worker's Comp Is this a Worker's Comp case?: No [facility] Disclaimer: The information contained in this section may have been updated after the patient was seen, as this information can be updated by other users. Social History Smoking Status: Former smoker tobacco type: cigarettes packs per day: 1 second hand exposure: Yes alcohol intake: never substance use type: denies use current occupational status: other Travel in the last 8 weeks: None ROS Obtained: Yes All systems reviewed & no
[2023-10-03 17:15] VITALS: BP 135/80; PULSE 86; RESP 19; TEMP 36.8; O2SAT 98
== END 2023-10-03 17:14 | disposition home or self-care (01) ==
PROVIDERS: Emergency Provider Nurse Practitioner
DX: S20.211A Contusion of right front wall of thorax, initial encounter (principal); Z87.891 Personal history of nicotine dependence; W11.XXXA Fall on and from ladder, initial encounter
CPT/HCPCS: 71101; 72100; 99212; 99214; G0463

== ENCOUNTER 2024-05-05 09:20 | Emergency (ER) | payer OTHER, SELFPAY ==
[2024-05-05 09:30] VITALS: BP 149/80; PULSE 112; RESP 18; TEMP 37.8; O2SAT 95; BMI 34.2
--- NOTE | 2024-05-05 09:41 | ED_ITS ---
Discharge Plan Disposition Patient Disposition: Home, Self-Care Condition: Good Prescriptions Prescriptions: New azithromycin [Zithromax] 250 mg tablet 250 mg PO UD DOSE PK Qty: 6 0RF Rx Instructions: Take two (2) tablets today, then one (1) tablet days #2 thru #5 amoxicillin 875 mg tablet 875 mg PO Q12H Qty: 20 0RF benzonatate 100 mg capsule 100 mg PO TIDP PRN (Reason: Cough) Qty: 30 0RF methylprednisolone 4 mg Tablets,Dose Pack 4 mg PO DIRECTED 6 Days Qty: 21 0RF Rx Instructions: Take 1 pack as directed for 6 days No Action albuterol sulfate 8.5 GM HFA aerosol inhaler 2 puffs IH Q6HP PRN (Reason: Shortness Of Breath) 30 Days Qty: 1 5RF Referrals Follow up/Referrals: Provider,Referral, MD [Primary Care Provider] - See instructions Activity Restrictions/Add. Instructions Additional Instructions/Restrictions: Drink plenty of fluids. Take tylenol or ibuprofen for pain or fever. Take the medications as directed. Follow up with your regular doctor. GO TO THE ER FOR ANY WORSENING SYMPTOMS Don't start the oral steroids (medrol dose pack) until tomorrow since you had the shot here. Make sure you start the antibiotics (amoxicillin, azithromycin) TODAY. Clinical Impressions Clinical Impression: Pneumonia, Acute viral syndrome Stand Alone Forms Stand Alone Forms: Work/School Release Instructions Patient Instructions: Pneumonia-Adult Discharge ED Provider: Gio Lundberg [facility] [place] HPI General Stated complaint: congestion cough soa chills diarrhea Time Seen by Provider: 05/05/24 09:41 History of Present Illness Provider Complaint: He states that for the past 4 days he has had chest congestion, productive cough, low grade fever and malaise. Related Data Previous Rx's Medication Instructions Recorded albuterol sulfate 90 mcg/actuation 2 puffs IH Q6HP PRN Shortness Of 02/09/22 aerosol inhaler Breath 30 days #1 ea amoxicillin 875 mg tablet 875 mg PO Q12H #20 tabs 05/05/24 azithromycin 250 mg tablet 250 mg PO UD DOSE PK #6 tabs 05/05/24 (Zithromax) benzonatate 100 mg capsule 100 mg PO TIDP PRN Cough #30 caps 05/05/24 methylprednisolone 4 mg tablets in 4 mg PO DIRECTED 6 days #21 tabs 05/05/24 a dose pack Allergies Allergy/AdvReac Type Severity Reaction Status Date / Time No Known Allergies Allergy Verified 05/05/24 09:47 [facility] Disclaimer: The information contained in this section may have been updated after the patient was seen, as this information can be updated by other users. Social History Smoking Status: Former smoker tobacco type: cigarettes packs per day: 1 second hand exposure: Yes alcohol intake: never substance use type: denies use current occupational status: other Travel in the last 8 weeks: None ROS Obtained: Yes All systems reviewed & no additional complaints except as documented Constitutional Constitutional: Reports poor appetite Eyes Eyes: Reports system reviewed and no additional complaints, except as documented ENT Ears, Nose, Mouth, and Throat: Reports as per HPI Cardiovascular Cardiovascular: Reports system reviewed and no additional complaints, except as documented and Denies chest pain Respiratory Respiratory: Denies shortness of breath, Reports chest congestion, Reports cough, Denies stridor and Denies wheezing Gastrointestinal Gastrointestingal: Reports system reviewed and no additional complaints, except as documented; Denies abdominal pain, diarrhea or vomiting Musculoskeletal Musculoskeletal: Reports system reviewed and no additional complaints, except as documented and Denies arthralgias Integumentary/Breasts Skin/Breast: Reports system reviewed and no additional complaints, except as documented and Denies rash Neurologic Neurologic: Denies paresthesias Allergic/Immunologic Allergic/Immunologic: Denies wheezing Physical Exam General General appearance: alert and in no apparent distress Eye Eye exam: Present normal appearance, PERRL and EOMI ENT ENT exam: Present mucous membranes moist and normal external ear exam Expanded ENT Exam External ear exam: Present normal external inspection TM/Canal exam: Bilateral TM: erythema and bulging Nose exam: Absent sinus tenderness Nasal speculum exam: Bilateral: normal Mouth exam: Present normal external inspection; Absent drooling Teeth exam: Present normal inspection Throat exam: Present tonsillar erythema and tonsillomegaly Neck Neck exam: Present normal inspection, full ROM and trachea midline; Absent tenderness, lymphadenopathy or thyromegaly Chest Chest inspection: Present normal inspection and symmetric chest wall rise; Absent tenderness or rash Respiratory Respiratory exam: Present normal lung sounds bilaterally; Absent respiratory distress, wheezes, stridor or accessory muscle use Cardiovascular Cardiovascular exam: Present regular rate, normal rhythm and normal heart sounds Abdominal Exam Abdominal exam: Present soft; Absent distention, tenderness, guarding, rebound or rigidity Extremities Exam Extremities exam: Present normal inspection, full ROM and normal capillary refill; Absent tenderness or calf tenderness Back Exam Back exam: Present normal inspection and full ROM; Absent tenderness Neurological Exam Neurological exam: Present alert and oriented X3 Psychiatric Psychiatric exam: Present normal affect and normal mood Skin Skin exam: Present warm, dry, intact and normal color Lymphatic Lymphatic Findings: no adenopathy Medical Decision Making Medical Records Medical records reviewed: No I reviewed the patient's medical records. Candiod Inquiry Pt receiving controlled substance: No Lab Data Lab results reviewed: Yes I reviewed the patient's lab results. Radiology Data #1: Image(s): Chest Image Reviewed: Yes I reviewed the patient's radiology image and Yes I have reviewed radiologist's interpretation Preliminary Findings: Abnormal Accession No. 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 Views: 2 views. COMPARISON: CR XR RIBS RT MIN 3V W CXR1V 10/03/2023 2:49 PM FINDINGS: Lungs: Right middle lobe airspace disease. Pleural spaces: Unremarkable. No pleural effusion. No pneumothorax. Heart/Mediastinum: Unremarkable. No cardiomegaly. Bones/joints: Unremarkable. IMPRESSION: Right middle lobe pneumonia.
--- NOTE | 2024-05-05 10:10 | XR_ITS ---
PROCEDURE INFORMATION: Exam: XR Chest Exam date and time: 05/05/2024 10:04 AM Age: 49 years old Clinical indication: Cough; Additional info: Chest congestion, cough TECHNIQUE: Imaging protocol: Radiologic exam of the chest. Views: 2 views. COMPARISON: CR XR RIBS RT MIN 3V W CXR1V 10/03/2023 2:49 PM FINDINGS: Lungs: Right middle lobe airspace disease. Pleural spaces: Unremarkable. No pleural effusion. No pneumothorax. Heart/Mediastinum: Unremarkable. No cardiomegaly. Bones/joints: Unremarkable. IMPRESSION: Right middle lobe pneumonia.
[2024-05-05] MEDS: DEXAMETHASONE 4MG/ML 1ML VIAL 8 MG IM (10:45)
[2024-05-05] MEDS: LIDOCAINE 1% 5ML PF VIAL IM (10:45)
[2024-05-05] MEDS: cefTRIAXone 1GM VIAL 1 GM IM (10:45)
[2024-05-05 11:20] VITALS: BP 149/80; PULSE 112; RESP 19; TEMP 37.8; O2SAT 96
[2024-05-05 11:20] LABS: Adenovirus,PCR Not Detected (NotDetected); Bordetella Pertussis Not Detected (NotDetected); Chlamydophila Pneumoniae, PCR Not Detected (NotDetected); Coronavirus 19, PCR Not Detected (NotDetected); Coronavirus 229E Not Detected (NotDetected); Coronavirus NL63 Not Detected (NotDetected); Coronavirus OC43 Not Detected (NotDetected); Coronovirus HKU1,PCR Not Detected (NotDetected); Human Metapneumovirus Not Detected (NotDetected); Influenza A, PCR Not Detected (NotDetected); Influenza AH1, 2009 Not Detected (NotDetected); Influenza AH1, PCR Not Detected (NotDetected); Influenza AH3,PCR Not Detected (NotDetected); Influenza B, PCR Not Detected (NotDetected); Parainfluenza 1, PCR Not Detected (NotDetected); Parainfluenza 2, PCR Not Detected (NotDetected); Parainfluenza 3, PCR Not Detected (NotDetected); Parainfluenza 4, PCR Not Detected (NotDetected); Respiratory Syncytial Virus Not Detected (NotDetected); Rhinovirus/Enterovirus Not Detected (NotDetected)
[2024-05-05 13:33] LABS: Mycoplasma Pneumoniae, PCR Detected (NotDetected)
--- NOTE | 2024-05-05 16:14 | PC.NURSE ---
Review full panel results which what he has is covered with current abx prescribed. No further acting is required.
== END 2024-05-05 11:20 | disposition home or self-care (01) ==
PROVIDERS: Emergency Provider Nurse Practitioner Family
DX: J18.9 Pneumonia, unspecified organism (principal); R05.1 Acute cough; R50.9 Fever, unspecified; R53.81 Other malaise
CPT/HCPCS: 71046; 87581; 87632; 87635; 87798; 96372; 99212; 99214; G0463; J0696; J1100

== ENCOUNTER 2024-09-24 14:54 | Emergency (ER) | payer OTHER, SELFPAY ==
[2024-09-24 15:50] VITALS: BP 156/95; PULSE 84; RESP 18; TEMP 36.9; O2SAT 96; BMI 34.3
--- NOTE | 2024-09-24 16:02 | EXP.UTC ---
Discharge Plan Disposition Patient Disposition: Home, Self-Care Condition: Good Prescriptions Prescriptions: New amoxicillin 500 mg tablet 500 mg PO TID 10 Days Qty: 30 0RF benzonatate 100 mg capsule 100 mg PO TIDP PRN (Reason: Cough) Qty: 30 0RF methylprednisolone 4 mg Tablets,Dose Pack 4 mg PO DIRECTED 6 Days Qty: 21 0RF Rx Instructions: Take 1 pack as directed for 6 days Referrals Follow up/Referrals: Provider,Referral, MD [Primary Care Provider] - See instructions Activity Restrictions/Add. Instructions Additional Instructions/Restrictions: Drink plenty of fluids. Take tylenol or ibuprofen for pain or fever. Take the medications as directed. Follow up with your regular doctor. GO TO THE ER FOR ANY WORSENING SYMPTOMS Clinical Impressions Clinical Impression: Acute bronchitis Stand Alone Forms Stand Alone Forms: Work/School Release Instructions Patient Instructions: Acute Bronchitis, DI for Acute Bronchitis Print Language Print Language: Stateless Discharge ED Provider: Gio Lundberg [facility] General Stated complaint: cough, body aches, congestion Time Seen by Provider: 09/24/24 15:49 Related Data Previous Rx's ?Medication ?Instructions ?Recorded amoxicillin 500 mg tablet 500 mg PO TID 10 days #30 tabs 09/24/24 benzonatate 100 mg capsule 100 mg PO TIDP PRN Cough #30 caps 09/24/24 methylprednisolone 4 mg tablets in 4 mg PO DIRECTED 6 days #21 tabs 09/24/24 a dose pack Allergies Allergy/AdvReac Type Severity Reaction Status Date / Time No Known Allergies Allergy Verified 05/05/24 09:47 [facility] Disclaimer: The information contained in this section may have been updated after the patient was seen, as this information can be updated by other users. Medical History (Updated 09/24/24 @ 16:24 by Gio Lundberg APRN) Kidney stone Asthma Surgical History (Updated 09/24/24 @ 16:08 by Bebe Ness RN) H/O wrist surgery Social History Smoking Status: Former smoker tobacco type: cigarettes packs per day: 1 second hand exposure: Yes alcohol intake: never substance use type: denies use current occupational status: other ROS Obtained: Yes All systems reviewed & no additional complaints except as documented Constitutional Constitutional: Reports poor appetite Eyes Eyes: Reports system reviewed and no additional complaints, except as documented ENT Ears, Nose, Mouth, and Throat: Reports as per HPI Cardiovascular Cardiovascular: Reports system reviewed and no additional complaints, except as documented and Denies chest pain Respiratory Respiratory: Denies shortness of breath, Reports chest congestion, Reports cough, Denies stridor and Denies wheezing Gastrointestinal Gastrointestingal: Reports system reviewed and no additional complaints, except as documented; Denies abdominal pain, diarrhea or vomiting Musculoskeletal Musculoskeletal: Reports system reviewed and no additional complaints, except as documented and Denies arthralgias Integumentary/Breasts Skin/Breast: Reports system reviewed and no additional complaints, except as documented and Denies rash Neurologic Neurologic: Denies paresthesias Allergic/Immunologic Allergic/Immunologic: Denies wheezing Physical Exam General General appearance: alert and in no apparent distress Eye Eye exam: Present normal appearance, PERRL and EOMI ENT ENT exam: Present mucous membranes moist and normal external ear exam Expanded ENT Exam External ear exam: Present normal external inspection TM/Canal exam: Bilateral TM: erythema and bulging Nose exam: Absent sinus tenderness Nasal speculum exam: Bilateral: normal Mouth exam: Present normal external inspection; Absent drooling Teeth exam: Present normal inspection Throat exam: Present tonsillar erythema and tonsillomegaly Neck Neck exam: Present normal inspection, full ROM and trachea midline; Absent tenderness, lymphadenopathy or thyromegaly Chest Chest inspection: Present normal inspection and symmetric chest wall rise; Absent tenderness or rash Respiratory Respiratory exam: Present normal lung sounds bilaterally; Absent respiratory distress, wheezes, stridor or accessory muscle use Cardiovascular Cardiovascular exam: Present regular rate, normal rhythm and normal heart sounds Abdominal Exam Abdominal exam: Present soft; Absent distention, tenderness, guarding, rebound or rigidity Extremities Exam Extremities exam: Present normal inspection, full ROM and normal capillary refill; Absent tenderness or calf tenderness Back Exam Back exam: Present normal inspection and full ROM; Absent tenderness Neurological Exam Neurological exam: Present alert and oriented X3 Psychiatric Psychiatric exam: Present normal affect and normal mood Skin Skin exam: Present warm, dry, intact and normal color Lymphatic Lymphatic Findings: no adenopathy Medical Decision Making Medical Records Medical records reviewed: No I reviewed the patient's medical records. Screening: Per USPSTF and CDC recommendations, given the prevalence of disease in our region, it is our hospital?s policy to screen for HIV and viral Hepatitis for all patients aged 18 and over and those with ongoing risk factors. Candido Inquiry Pt receiving controlled substance: No Lab Data Lab results reviewed: Yes I reviewed the patient's lab results.
[2024-09-24 16:16] LABS: UTC Influenza A Antigen Negative (Negative); UTC Strep Screen (Rapid) Negative (Negative)
[2024-09-24 16:17] LABS: UTC Influenza B Antigen Negative (Negative)
[2024-09-24 16:25] VITALS: BP 156/95; PULSE 84; RESP 18; TEMP 36.9; O2SAT 96
== END 2024-09-24 16:30 | disposition home or self-care (01) ==
PROVIDERS: Emergency Provider Nurse Practitioner Family
DX: J20.9 Acute bronchitis, unspecified (principal); R05.9 Cough, unspecified; R09.81 Nasal congestion; R63.8 Other symptoms and signs concerning food and fluid intake
CPT/HCPCS: 87804; 87880; 99212; G0381